=== PATIENT | male | born 1995 ===

== ENCOUNTER 2017-09-13 09:48 | Emergency (ER) | payer MEDICAID, OTHER ==
[2017-09-13 10:00] VITALS: BMI 25.1
[2017-09-13 10:08] VITALS: BP 132/79; PULSE 72; RESP 17; TEMP 99; O2SAT 98
--- NOTE | 2017-09-13 10:08 | RAD ---
PROCEDURE: Right Ankle Radiographs. HISTORY: R ankle pain COMPARISON: None FINDINGS: BONES: No acute fracture. JOINTS: Ankle mortise maintained. Talar dome intact SOFT TISSUES: Lateral malleolar soft tissue swelling OTHER FINDINGS: Small ankle joint effusion. IMPRESSION: Lateral malleolar soft tissue swelling and small ankle joint effusion without demonstrated fracture or dislocation.
--- NOTE | 2017-09-13 10:53 | C.PDOC ---
History Of Present Illness 21 y/o male presents to the ER complaining of right lateral ankle pain. Patient states that he inverted his right ankle while he was at a rock concert yesterday. Patient denies having weakness and numbness. Time Seen by Provider: 09/13/17 09:56 Chief Complaint (Nursing): Lower Extremity Problem/Injury History Per: Patient History/Exam Limitations: no limitations Onset/Duration Of Symptoms: Days Current Symptoms Are (Timing): Still Present Severity: Moderate Past Medical History Reviewed: Historical Data, Nursing Documentation, Vital Signs Vital Signs: Last Vital Signs Temp 99.0 F 09/13/17 09:59 Pulse 72 09/13/17 09:59 Resp 17 09/13/17 09:59 BP 132/79 09/13/17 09:59 Pulse Ox 98 09/13/17 10:53 - Medical History PMH: No Chronic Diseases Surgical History: No Surg Hx Family History: States: No Known Family Hx - Social History Hx Tobacco Use: Yes Hx Alcohol Use: Yes Hx Substance Use: Yes - Immunization History Hx Influenza Vaccination: No Hx Pneumococcal Vaccination: No Review Of Systems Except As Marked, All Systems Reviewed And Found Negative. Musculoskeletal: Positive for: Other (right ankle pain) Physical Exam - Physical Exam Appears: Non-toxic, No Acute Distress Skin: Normal Color, Warm, Dry Head: Atraumatic, Normacephalic Eye(s): bilateral: Normal Inspection Nose: Normal Oral Mucosa: Moist Neck: Supple Chest: Symmetrical Cardiovascular: Rhythm Regular Respiratory: Normal Breath Sounds, No Rales, No Rhonchi, No Wheezing Extremity: Tenderness (mild tenderness to lateral aspect of right ankle) Neurological/Psych: Oriented x3, Normal Speech ED Course And Treatment O2 Sat by Pulse Oximetry: 98 (RA) Pulse Ox Interpretation: Normal - Other Rad R ankle X-Ray: Interpreted by Me (no fx/disoc/STS) Progress Note: motrin ice pack Reevaluation Time: 10:53 Reassessment Condition: Improved Medical Decision Making Medical Decision Making: ankle sprain, no fx Disposition Doctor Will See Patient In The: Office Counseled Patient/Family Regarding: Studies Performed, Diagnosis - Disposition Referrals: Shaik Guevara MD [Staff Provider] - Disposition: HOME/ ROUTINE Disposition Time: 10:53 Condition: GOOD Additional Instructions: ice packs 1/2 hour per hour, nothing hot motrin 400-600 mg every 6 hours as needed Instructions: Ankle Sprain Forms: [facility] ([place]er) - Clinical Impression Clinical Impression: Ankle sprain - Scribe Statement The provider has reviewed the documentation as recorded by the Scribe Rick Desouza Provider Attestation: All medical record entries made by the Scribe were at my direction and personally dictated by me. I have reviewed the chart and agree that the record accurately reflects my personal performance of the history, physical exam, medical decision making, and the department course for this patient. I have also personally directed, reviewed, and agree with the discharge instructions and disposition.
== END 2017-09-13 11:43 | disposition home or self-care (01) ==
LOC: C.ER 09:48
DX: S93.401A Sprain of unspecified ligament of right ankle, initial encounter (principal); X50.0XXA Overexertion from strenuous movement or load, initial encounter; Y92.89 Other specified places as the place of occurrence of the external cause
CPT/HCPCS: 73610; 97116; 97161; 99284; G8978; G8979; G8980